=== PATIENT | female | born 1965 | race Two or more races ===

== ENCOUNTER 2019-01-14 18:02 | Emergency (ER) | payer MEDICAID | END 2019-01-14 20:09 | disposition left against medical advice (07) | LOC: ER 19:26 | DX: Z53.21 Procedure and treatment not carried out due to patient leaving prior to being seen by health care provider (principal) ==

== ENCOUNTER 2021-02-15 11:58 | Emergency (ER) | payer MEDICAID, OTHER ==
[~2021-02-15] VITALS: Ht 162.6 cm; Wt 87.0 kg
[2021-02-15 13:18] VITALS: BP 118/66
[2021-02-15] MEDS ORDERED: ACETAMINOPHEN 325MG TABLET PO ONE (13:30)
[2021-02-15] MEDS ORDERED: IBUPROFEN 400MG TABLET PO ONE (13:30)
== END 2021-02-15 14:41 | disposition home or self-care (01) ==
LOC: ER 11:58
DX: G89.29 Other chronic pain (principal); M79.672 Pain in left foot; Z98.890 Other specified postprocedural states
CPT/HCPCS: 73630; 99283